=== PATIENT | female | born 1945 | race Asian ===

== ENCOUNTER 2022-02-24 23:20 | Emergency (ER) | payer SELFPAY ==
[~2022-02-24] VITALS: Ht 152.4 cm; Wt 59.0 kg
[2022-02-24 23:35] VITALS: BP_SYST 138
--- NOTE | 2022-02-24 23:42 | NUR ---
77 YR OLD FEMALE BROUGHT IN BY [facility] DEPT FOR MEDICAL CLEARANCE. PT MEDICALLY CLEARED BY DANILO ABBASI. NO ACUTE DISTRESS. VITALS STABLE. PT REFUSED TO ANSWER QUESTIONS.
[2022-02-24 23:43] VITALS: BP_SYST 138
--- NOTE | 2022-02-24 23:46 | NUR ---
PT DISCHARGED INTO THE CARE OF [facility] OFFICER DE PANIAGUA [id number]. PT IN STABLE CONDITION, LAW ENFORCEMENT PROVIDED WITH DOCUMENTS FOR CLEARANCE.
== END 2022-02-24 23:49 ==
LOC: SED 23:20
DX: Z02.89 Encounter for other administrative examinations (principal); M25.512 Pain in left shoulder
CPT/HCPCS: 99283